=== PATIENT | male | born 2000 | race Two or more races ===

== ENCOUNTER 2023-01-04 04:17 | Emergency (ER) | payer MEDICAID ==
[~2023-01-04] VITALS: Ht 177.8 cm; Wt 113.5 kg
[2023-01-04 04:25] VITALS: BP 111/75; PULSE 94; RESP 18; O2SAT 96
== END 2023-01-04 07:34 | disposition left against medical advice (07) ==
LOC: ER 04:17
DX: H92.01 Otalgia, right ear (principal); Z53.21 Procedure and treatment not carried out due to patient leaving prior to being seen by health care provider